=== PATIENT | female | born 1965 | race Caucasian/White ===

== ENCOUNTER → 2017-05-14 | Outpatient (CLI) | payer OTHER ==
--- NOTE | 2017-05-14 15:39 | PCVCIMAG ---
APPROVED REPORT Exam: Stress Echocardiogram Indication: Cardiomyopathy, Hypertension, Dyspnea Patient Location: Echo lab Stress Nurse: Alicja Guan RN Room #: 2 Status: routine Ht: 5 ft 8 in HR: 86 bpm BP: 100/54 mmHg Rhythm: NSR Medical History Medical History: Cardiomyopathy, HTN, HX Pulmonary emboli Cardiac Risk Factors: HTN, FACTOR VIII CLOTTING DISORDER Pretest Chest Pain Characteristics: No chest pain Procedure The patient underwent an Exercise Stress Test using the Chuck Protocol. Blood pressure, heart rate, and EKG were monitored. An Echocardiogram was performed by preventative maintenance technician in four stages in quad fashion. At peak stress, four selected images were obtained and placed side by side with resting images for comparison. Stress Test Details Stress Test: Exercise stress testing was performed using a Chuck protocol. HR Resting HR: 86 bpmMax Heart Rate (APMHR): 168 bpm Max HR Achieved: 153 bpmTarget HR (85% APMHR): 142 bpm % of APMHR: 91 Recovery HR: 98 bpm HR response to stress: Normal HR response to stress BP Resting BP: 100/54 mmHg Max BP: 146/74 mmHg Recovery BP: 122/72 mmHg ECG Resting ECG: Sinus Rhythm, Incomplete RBBB Stress ECG: Incomplete RBBB ST Change: Upsloping ST depression, Non-ischemic Arrhythmia: PACs Recovery ECG: Incomplete RBBB Recovery ST Change: Non-ischemic Recovery Arrhythmia: None Clinical Reason for Termination: Maximal effort Stress Symptoms: NONE Exercise duration: 12 min sec Highest Stage Achieved: Stage 4: 4.2 mph at 16% grade. Exercise capacity: 13.4 METs Overall Exercise Capacity for Age: Good Scale: Active Angina Score: None Pre-Stress Echo The resting Echocardiogram showed abnormal left ventricular contractility with an estimated Ejection Fraction of about 45%. Global mild hypokinesis is seen consistent with known idiopathis cardiomyopathy. Post-Stress Echo The stress Echocardiogram showed normal left ventricular contractility with an estimated Ejection Fraction of about 50-55%. The saxena all contract uniformly although contractility is mildly blunted from the cardiomyopathy. Conclusion Clinical Response: Non-ischemic Exercise Capacity: Superior Stress ECG Response: Non-ischemic Stress Echo Images: Non-ischemic
--- NOTE | 2017-05-14 18:21 | PCVCIMAG ---
EXAM: LEFT LOWER EXTREMITY ARTERIAL DUPLEX INDICATION: Peripheral Arterial Disease. Leg pain. FINDINGS: Left Leg: Satisfactory arterial waveforms throughout the common/profunda/superficial femoral, popliteal, anterior tibial, peroneal, and posterior tibial arteries. No flow limiting stenosis seen. IMPRESSION: No flow limiting stenosis in the left lower extremity. LOC:OFFICE
== END | disposition home or self-care (01) ==
LOC: PCVCIMAG 13:13
PROVIDERS: ATTEND Internal Medicine Cardiovascular Disease
DX: I73.9 Peripheral vascular disease, unspecified (principal); I42.9 Cardiomyopathy, unspecified; I10 Essential (primary) hypertension; R06.02 Shortness of breath; Z86.711 Personal history of pulmonary embolism
CPT/HCPCS: 93325; 93351; 93926